=== PATIENT | male | born 1960 | race Caucasian/White ===

== ENCOUNTER 2020-04-14 12:39 | Emergency (ER) | payer OTHER ==
[~2020-04-14] VITALS: Ht 182.8 cm; Wt 100.0 kg
--- NOTE | 2020-04-14 12:56 | ED Psychosocial ---
General Chief Complaint: Substance Abuse Stated Complaint: MEDICAL CLEARANCE Source: patient History of Present Illness Date Seen by Provider: Apr 14, 2020 Time Seen by Provider: 12:55 Initial Comments Patient presents under police custody for medical clearance for incarceration. Patient without any complaint, denies any recent illness. He denies chest pain, shortness of air, fever or chills. He denies abdominal pain, nausea vomiting. Does have a history of hypertension and does take his blood pressure medicine daily. Allergies and Home Medications Allergies Coded Allergies: No Known Drug Allergies (Unverified , 04/14/20) Patient Home Medication List Home Medication List Reviewed: Yes Review of Systems Constitutional: no symptoms reported Respiratory: no symptoms reported Cardiovascular: no symptoms reported Gastrointestinal: no symptoms reported Musculoskeletal: no symptoms reported Past Zswrhvd-Fhbikm-Yvlwpb Hx Past Med/Social Hx: Reviewed Nursing Past Med/Soc Hx Patient Social History Alcohol Use: Occasionally Uses Recreational Drug Use: No Smoking Status: Current Someday Smoker Type Used: Cigarettes 2nd Hand Smoke Exposure: No Recent Foreign Travel: No Contact w/Someone Who Travel: No Recent Hopitalizations: No Seasonal Allergies Seasonal Allergies: No Past Medical History Surgeries: Yes (BTK Amputation) Amputation Respiratory: No Cardiac: Yes High Cholesterol, Hypertension Neurological: No Gastrointestinal: No Musculoskeletal: Yes (Left BTK amputation) Amputee Endocrine: No HEENT: No Cancer: No Psychosocial: No Integumentary: No Blood Disorders: No Physical Exam Capillary Refill : Height, Weight, BMI Height: '" Weight: lbs. oz. kg; BMI Method: General Appearance: WD/WN, no apparent distress Respiratory: chest non-tender, lungs clear Cardiovascular: regular rate, rhythm, no edema Gastrointestinal: non tender, soft Neurologic/Psychiatric: no motor/sensory deficits, alert, normal mood/affect, oriented x 3 Departure Impression Primary Impression: Medical clearance for incarceration Disposition: 21 DIS/[address]/LAW ENFORCE Condition: Stable Departure-Patient Inst. Referrals: NO,LOCAL PHYSICIAN (PCP/Family) Primary Care Physician Patient Instructions: ALCOHOL AND SUBSTANCE ABUSE Add. Discharge Instructions: Medically cleared for incarceration All discharge instructions reviewed with patient and/or family. Voiced understanding. JUANITO JARA DO Apr 14, 2020 12:56
--- OUTSIDE RECORDS SUMMARY | 2020-04-14 15:14 | XMS REPORT ---
Author Vinod Antunez [facility] eClinicalWorks Address Unknown Phone Unavailable Care Team Providers Care Tangible Personal Property Appraiser Name Role Phone JOSE SANCHEZ CP Unavailable Allergies, Adverse Reactions, Alerts Substance Reaction Event Type N.K.D.A. Info Not Available Non Drug Allergy Problems Problem Type Condition Code Onset Dates Condition Statu s Problem COPD [Chronic obstructive pulmonary disease] 496 Active Problem Diverticulosis of colon without diverticulitis 562.10 Active Problem Allergy, unspecified 995.3 Active Problem Hyperlipidemia 272.4 Active Problem Impaired fasting glucose 790.21 Act lindsey Problem AMPUT BELOW KNEE, UNILAT 897.0 Act lindsey Problem Erectile Dysfunction 607.84 Active Problem GERD [Gastroesophageal reflux disease] 530.81 Active Problem Depressive disorder NEC 311 Acti ve Problem Hypercholesterolemia 272.0 Active Assessment Erectile Dysfunction 607.84 Active Assessment Impaired fasting glucose 790.21 Act lindsey Assessment Hypercholesterolemia 272.0 Active Assessment GERD [Gastroesophageal reflux disease] 530.81 Active Assessment Exam. Annual Physical Adult V70.0 Active Medications Medication Code System Code Instructions Start Date End Date Status Dosage amlodipine NDC 78517 5 mg orally once a day February 26, 2014 1 tab(s) pantoprazole NDC 28434 40 mg orally once a day 1 tab(s) Prosthetic supplies NDC 0 prosthetic repair topical as needed Jun 12, 2012 -- Cortisporin Otic NDC 82822 1%-0.35%-93990 units/mL in each affected ear 4 times a day 2 gtt aspirin NDC 27679 325 mg orally once a day Aug 30, 2004 1 tab(s) CRESTOR NDC 49840 10 mg orally once a day (at bedtime) March 13 14 1 tab(s) Viagra NDC 94007 100 mg orally once a day as needed Nov 05, 2008 1 tab(s) Spiriva NDC 79374 18 mcg inhaled as needed February 24, 2011 1 ea Prosthetic Left Leg NDC 0 below the knee - use daily May 14 014 repair or replace Bactroban NDC 720 2% ointment intranasally 2 times a d ay as needed January 27, 2003 1 pritesh Procedures Procedure Coding System Code Date Prev Med, estab pt, 40-64 yr CPT-4 04804 Dec Vital Signs Date/Time: December 26, 2014 Temperature 97.7 F Weight 230.4 lbs Height 73(shoes) in Pain Scale 5 R hand 0-10 Blood Pressure Diastolic 80LC mm Hg Blood Pressure Systolic 130 mm Hg Results No Known Results Summary Purpose eClinicalWorks Submission
--- OUTSIDE RECORDS SUMMARY | 2020-04-14 15:14 | XMS REPORT ---
Author Author Vinod Levine Organization [facility], [place] Address [address] [place] [id number] Care Team Providers Care Rug Layer Name Role Phone Julianna Jared Unavailable PROBLEMS Type Condition ICD9-CM Code [id number] Code Onset Dates Condition S tatus SNOMED Code Problem Unspecified gastritis and ga stroduodenitis without mention of hemorrhage 535.50 Active 490671428 Problem Stricture and stenosis of esophagus 530.3 Active 15427417 Problem GERD 530.81 Active 482171624 Problem Family history of colon cancer V16.0 Active 351471555 Problem Hemorrhoids, internal w/o complication 455.0 Active 81511216 Problem Esophagitis, unspecified 530.10 Activ e 53148457 Problem Dysphagia, unspecified 787.20 Active 14288138 Problem Diverticulosis of colon (without mention of hemorrhage) 56 2.10 Active 805434738 ALLERGIES No Information ENCOUNTERS Encounter Location Date Diagnosis [facility] [address] [id number] Feb, Family history of colon canc er requiring screening colonoscopy Z80.0 [facility], [address] [address] Dec, Family history of colon cancer requiring screening colonoscopy Z80.0 [facility], [address] [address] Oct, GERD 530.81 [facility], [address] [address] Feb, GERD 530.81 and Family history of colon cancer V16.0 [facility], [address] [address] Oct, [facility], [address] [address] January, Esophagitis, unspecified 530.10 and Family history of colon cancer V16.0 [facility], [place] [address] [place] [address] January, [facility], [place] [address] [place] [address] Jul, [facility], [place] [address] [place] [address] Feb, [facility], [place] [address] [place] [address] Feb, IMMUNIZATIONS No Known Immunizations SOCIAL HISTORY Never Assessed REASON FOR VISIT Fm Hx Colon Polyps PLAN OF CARE Activity Details Pending Test Surgical to [facility] Pathology VITAL SIGNS MEDICATIONS Medication Instructions Dosage Frequency Start Date End Date Duration S tatus Aspirin 325 MG Orally Once a day 1 tablet 24h Active Viagra dose 1 tablet as needed A ctive Crestor 10 MG Orally Once a day 1 tablet 24h Active Amlodipine Besylate 5 MG Orally Once a day 1 tablet 24h Active Pantoprazole Sodium 40 MG Orally Once a day 1 tablet 24h January, 4 90 days Active RESULTS No Results PROCEDURES No Known procedures INSTRUCTIONS MEDICATIONS ADMINISTERED No Known Medications MEDICAL (GENERAL) HISTORY Type Description Date Medical History diverticulosis Medical History constipation Medical History sessile serrated adenomatous polyp Medical History esophagitis Medical History gastritis Medical History dysphagia Medical History mild esophageal narrowing Surgical History colonoscopy 02/25/2013 Surgical History EGD 12/28/2009
--- OUTSIDE RECORDS SUMMARY | 2020-04-14 15:14 | XMS REPORT | Continuity of Care Document ---
Author Organization Unknown Address Unknown Phone Unavailable Allergies Active Description Code Type Severity Reaction Onset Reported/Identified Relationship to Patient Clinical Status Yes NO KNOWN DRUG ALLERGIES 447609 Drug Allergy N/A N/A Yes NO NAME AVAILABLE [id number] DRUG N/A N/A Medications Medication Packaging Start Date St op Date Route Dosage Sig pantoprazole (PROTONIX) 40 m g delayed release tablet -- TAKE 1 BY MOUTH DAILY BEFORE BREAKFAST tablet 03/22 pantoprazole (PROTONIX) 40 m g delayed release tablet -- Take 40 mg by mouth once a day with breakfast tablet 05/30/2017 Oral DAILY WITH BREAKFAST DAILY WITH BREAKFAST atorvastatin (LIPITOR) 40 mg tablet -- TAKE 1 BY MOUTH DAILY AT BEDTIME tablet 06/09/2017 atorvastatin (LIPITOR) 40 mg tablet -- TAKE 1 BY MOUTH DAILY AT BEDTIME tablet 08/09/2017 atorvastatin (LIPITOR) 40 mg tablet -- TAKE 1 BY MOUTH DAILY AT BEDTIME tablet 10/11/2017 pantoprazole (PROTONIX) 40 m g delayed release tablet -- Take 40 mg by mouth once a day with breakfast tablet 12/19/2017 Oral DAILY WITH BREAKFAST DAILY WITH BREAKFAST pantoprazole (PROTONIX) 40 m g delayed release tablet -- Take 40 mg by mouth once a day with breakfast tablet 01/03/2018 Oral DAILY WITH BREAKFAST DAILY WITH BREAKFAST atorvastatin (LIPITOR) 40 mg tablet -- TAKE 1 BY MOUTH DAILY AT BEDTIME tablet 01/03/2018 amLODIPine (NORVASC) 5 mg ta blet -- Take 5 mg by mouth once a day tablet 01/03/2018 Oral DAILY DAILY varenicline (CHANTIX) 0.5 mg (11)- 1 mg (42) dose pack (starter) -- Take according to package instructions. Kit 01/03/2018 varenicline (CHANTIX) 1 mg t ablet -- Take 1 mg by mouth two times a day tablet 01/03/2018 Or al 2 TIMES A DAY 2 TIMES A DAY cetirizine (ZYRTEC) 10 mg ta blet -- Take 10 mg by mouth two times a day, as needed for Allergies (Rash) tablet 11/27/2018 Oral 2 TIMES A DAY NE EDED 2 TIMES A DAY NEEDED predniSONE (DELTASONE) 10 mg tablet -- 5,5,4,4,3,3,2,2,1,1 tablet 11/27/2018 varenicline (CHANTIX) 0.5 mg (11)- 1 mg (42) dose pack (starter) -- Take according to package instructions. Kit 11/27/2018 varenicline (CHANTIX) 1 mg t ablet -- Take 1 mg by mouth two times a day tablet 12/19/2018 Or al 2 TIMES A DAY 2 TIMES A DAY Problems Date Dx Coded Attending Type Code Diagnosis Diagnosed By 12/20/2016 TONY DUVALL E78. 4 Other hyperlipidemia 12/20/2016 TONY DUVALL WORKING I10 Essential (primary) hypertension 12/20/2016 TONY DUVALL WORKING Z12. 5 Encounter for screening for malignant neoplasm of prostate 02/06/2017 KARMA GONSALEZ V R97. 20 Elevated prostate specific antigen (PSA) KARMA GONSALEZ 02/24/2017 KARMA GONSALEZ WORKING N40.0 Benign prostatic hyperplasia without lower urinary tra ct symptoms 07/18/2017 KARMA GONSALEZ ADMITTING R97.20 Elevated prostate specific antigen (PSA) 12/28/2017 TONY DUVALL WORKING Z00. 00 Encounter for general adult medical examination without abnormal findings 01/03/2018 WORKING E78.2 Mixed hyperlipidemia 01/03/2018 WORKING I10 E ssential (primary) hypertension 01/03/2018 WORKING K21.0 Gastro- esophageal reflux disease with esophagitis 01/03/2018 WORKING Z00.00 Encounter for general adult medical examination without abnormal findings 01/03/2018 WORKING Z72.0 Tobacco use 01/03/2018 WORKING Z86.010 Personal history of colonic polyps 11/27/2018 WORKING I10 E ssential (primary) hypertension 11/27/2018 WORKING L23.89 Allergic contact dermatitis due to other agents 11/27/2018 WORKING Z72.0 Tobacco use 01/14/2020 TONY DUVALL 83 Annual Exam 02/03/2020 RAMYA BARROS [id number] Urinary Frequency Procedures There is no data. Results Test Result Range CBC WITH DIFF - 12/19/14 07:17 WBC 6.4 10*3/uL 4.3-10.8 RBC 5.44 10*6/uL 4.70-6.10 HGB 16.8 g/dL 14.0-18.0 HCT 48.7 % 42-52 MCV 90 fL 81-99 MCH 31 pg 26-34 MCHC 35 g/dL 31-37 PLATELET COUNT 162 10*3/uL 150-400 RDWCV 13.4 % 11.5-14.5 DIFF TYPE AUTOMATED DIFF NEUTROPHIL % 63 % 36-66 LYMPHOCYTE % 20 % 24-44 MONOCYTE % 13 % 1-10 EOSINOPHIL % 3 % 0-6 BASOPHIL % 1 % 0-2 ABS. NEUTROPHILS 4.0 10*3/uL 1.55-7.13 ABS. LYMPHOCYTES 1.3 10*3/uL 1.0-4.8 ABS. MONOCYTES 0.8 10*3/uL 0.4-1.08 ABS. EOSINOPHILS 0.2 10*3/uL 0.0-0.65 ABS. BASOPHILS 0.1 10*3/uL 0.0-0.11 ABSOLUTE NUCLEATED RBC 0.00 10*3/uL PERCENT NUCLEATED RBC 0 COMPREHENSIVE METABOLIC PANEL - 12/19/14 07:17 POTASSIUM 4.5 mmol/L 3.5-5.1 CALCIUM 9.8 mg/dL 8.6-10.6 GLUCOSE 115 mg/dL 70-115 BUN 18 mg/dL 8-22 CREATININE 1.0 mg/dL 0.7-1.3 SODIUM 136 mmol/L 136-145 CHLORIDE 106 mmol/L 98-110 CO2 20 mmol/L 22-29 GFR ESTIMATED NOT AFR/AM >60 GFR ESTIMATED IF AFR/AM >60 ALT-SGPT 26 U/L 0-55 AST-SGOT 31 U/L 5-34 TOTAL PROTEIN,SERUM 7.2 g/dL 6-8.3 ALBUMIN 4.2 g/dL 3.6-5.3 ALKALINE PHOSPHATASE 93 U/L 40-150 TOTAL BILIRUBIN 1.2 mg/dL 0.2-1.2 ANION GAP 10 5-15 GLOBULIN, CALCULATED 3.0 g/dL A/G RATIO 1.4 ratio 1-1.8 LIPID PANEL W/REFLEX LDL - 12/19/14 07:1 7 TRIGLYCERIDES 152 mg/dL 20-170 CHOLESTEROL 147 mg/dL 140-200 HDL 40 mg/dL 35-60 LDL 77 mg/dL 60-130 PROSTATE SPECIFIC ANTIGEN, TOTAL - MEDIC AL - 12/19/14 07:17 TOTAL PROSTATIC SPECIFIC AG 0.6 ng/mL 0- 4 TSH - 12/19/14 07:17 TSH 2.00 m[iU]/mL 0.35-4.9 URINALYSIS REFLEX TO CULTURE - 12/19/14 07:17 COLOR YELLOW APPEARANCE CLEAR CLEAR SPECIFIC GRAVITY 1.020 1.005-1.030 PH, URINE 5.5 5.0-9.0 PROTEIN TRACE mg/dL NEGATIVE GLUC NEGATIVE mg/dL NEGATIVE KETONES NEGATIVE mg/dL NEGATIVE BILIRUBIN NEGATIVE NEGATIVE BLOOD NEGATIVE NEGATIVE NITRITE NEGATIVE NEGATIVE UROBILINOGEN NORMAL mg/dL NORMAL LEUKOCYTE ESTERASE NEGATIVE NEGATIVE WBC'S 3 [HPF] 0-4 MUCUS OCCASIONAL [LPF] SQUAMOUS EPITHELIAL CELLS 1 [LPF] 0-1 CBC WITH DIFF - 12/17/15 07:13 WBC 6.8 10*3/uL 4.3-10.8 RBC 5.33 10*6/uL 4.70-6.10 HGB 16.4 g/dL 14.0-18.0 HCT 48.6 % 42-52 MCV 91 fL 81-99 MCH 31 pg 26-34 MCHC 34 g/dL 31-37 PLATELET COUNT 180 10*3/uL 150-400 RDWCV 13.3 % 11.5-14.5 DIFF TYPE AUTOMATED DIFF NEUTROPHIL % 65 % 36-66 LYMPHOCYTE % 21 % 24-44 MONOCYTE % 11 % 1-10 EOSINOPHIL % 2 % 0-6 BASOPHIL % 1 % 0-2 ABS. NEUTROPHILS 4.4 10*3/uL 1.55-7.13 ABS. LYMPHOCYTES 1.4 10*3/uL 1.0-4.8 ABS. MONOCYTES 0.7 10*3/uL 0.4-1.08 ABS. EOSINOPHILS 0.2 10*3/uL 0.0-0.65 ABS. BASOPHILS 0.1 10*3/uL 0.0-0.11 ABSOLUTE NUCLEATED RBC 0.00 10*3/uL COMPREHENSIVE METABOLIC PANEL - 12/17/15 07:13 POTASSIUM 4.4 mmol/L 3.5-5.1 CALCIUM 9.1 mg/dL 8.6-10.6 GLUCOSE 112 mg/dL 70-115 BUN 18 mg/dL 8-22 CREATININE 0.9 mg/dL 0.7-1.3 SODIUM 139 mmol/L 136-145 CHLORIDE 105 mmol/L 98-110 CO2 26 mmol/L 22-29 GFR ESTIMATED NOT AFR/AM >60 GFR ESTIMATED IF AFR/AM >60 ALT-SGPT 25 U/L 0-55 AST-SGOT 29 U/L 5-34 TOTAL PROTEIN,SERUM 6.6 g/dL 6-8.3 ALBUMIN 4.0 g/dL 3.6-5.3 ALKALINE PHOSPHATASE 89 U/L 40-150 TOTAL BILIRUBIN 0.9 mg/dL 0.2-1.2 ANION GAP 8 5-15 GLOBULIN, CALCULATED 2.6 g/dL A/G RATIO 1.5 ratio 1-1.8 LIPID PANEL W/REFLEX LDL - 12/17/15 07:1 3 TRIGLYCERIDES 214 mg/dL 20-170 CHOLESTEROL 158 mg/dL 140-200 HDL 39 mg/dL 35-60 LDL 76 mg/dL 60-130 PROSTATE SPECIFIC ANTIGEN, TOTAL - MEDIC AL - 12/17/15 07:13 TOTAL PROSTATIC SPECIFIC AG 0.9 ng/mL 0- 4 TSH - 12/17/15 07:13 TSH 2.24 m[iU]/mL 0.35-4.9 URINALYSIS REFLEX TO CULTURE - 12/17/15 07:13 SPECIMEN MIDSTREAM URINE COLOR YELLOW APPEARANCE CLEAR CLEAR SPECIFIC GRAVITY 1.018 1.005-1.030 PH, URINE 6.0 5.0-9.0 PROTEIN TRACE mg/dL NEGATIVE GLUC NEGATIVE mg/dL NEGATIVE KETONES NEGATIVE mg/dL NEGATIVE BILIRUBIN NEGATIVE NEGATIVE BLOOD NEGATIVE NEGATIVE NITRITE NEGATIVE NEGATIVE UROBILINOGEN NORMAL mg/dL NORMAL LEUKOCYTE ESTERASE TRACE NEGATIVE WBC'S 4 [HPF] 0-4 RBC'S <1 [HPF] 0-1 MUCUS FEW [LPF] NEGATIVE SQUAMOUS EPITHELIAL CELLS 1 [HPF] 0-1 CBC WITH DIFF - 12/20/16 07:03 WBC 6.02 10*3/uL 4.30-10.80 RBC 5.25 10*6/uL 4.70-6.10 HGB 15.6 g/dL 14.0-18.0 HCT 47.7 % 42.0-52.0 MCV 91 fL 81-99 MCH 30 pg 26.0-34.0 MCHC 32.7 g/dL 31.0-37.0 PLATELET COUNT 201 10*3/uL 150-400 RDWCV 12.3 % 11.5-14.5 DIFF TYPE AUTOMATED DIFF NEUTROPHIL % 62.2 % 36.0-66.0 LYMPHOCYTE % 23.9 % 24.0-44.0 MONOCYTE % 8.3 % 1.0-10.0 EOSINOPHIL % 4.2 % 0.0-6.0 BASOPHIL % 1.2 % 0.0-2.0 ABS. NEUTROPHILS 3.75 10*3/uL 1.55-7.13 ABS. LYMPHOCYTES 1.44 10*3/uL 1.00-4.80 ABS. MONOCYTES 0.50 10*3/uL 0.40-1.08 ABS. EOSINOPHILS 0.25 10*3/uL 0.00-0.65 ABS. BASOPHILS 0.07 10*3/uL 0.00-0.11 ABSOLUTE NUCLEATED RBC 0.00 10*3/uL 0.00 PERCENT NUCLEATED RBC 0.0 % 0.0 MPV 13.4 fL 9.4-12.4 RDW STANDARD DEVIATION 41.1 fL 35.1-43 .9 GRANULOCYTE, IMMATURE, ABSOLUTE 0.0 10*3/uL 0.0-0.1 GRANULOCYTES, IMMATURE, PERCENT 0.2 % 0.0-0.5 COMPREHENSIVE METABOLIC PANEL - 12/20/16 07:03 POTASSIUM 4.4 mmol/L 3.5-5.1 CALCIUM 9.1 mg/dL 8.5-10.0 GLUCOSE 94 mg/dL 70-115 BUN 17 mg/dL 7-18 CREATININE 0.89 mg/dL 0.55-1.30 SODIUM 142 mmol/L 136-145 CHLORIDE 107 mmol/L 98-107 CO2 27 mmol/L 21-32 GFR ESTIMATED NOT AFR/AM >60 GFR ESTIMATED IF AFR/AM >60 ALT-SGPT 24 U/L 16-61 AST-SGOT 19 U/L 15-37 TOTAL PROTEIN,SERUM 6.8 g/dL 6.0-8.3 ALBUMIN 3.4 g/dL 3.4-5.0 ALKALINE PHOSPHATASE 90 U/L 45-117 TOTAL BILIRUBIN 0.6 mg/dL 0.2-1.0 ANION GAP 8 5-15 GLOBULIN, CALCULATED 3.4 g/dL A/G RATIO 1.0 ratio 1-1.8 LIPID PANEL WITH DIRECT MEASURED LDL - 0 12/20/16 07:03 TRIGLYCERIDES 78 mg/dL 20-170 CHOLESTEROL 128 mg/dL <201 HDL 44 mg/dL 40-60 LOW DENSITY LIPOPROTEIN, DIRECT 71 mg/dL <100 PROSTATE SPECIFIC ANTIGEN, TOTAL - MEDIC AL - 12/20/16 07:03 TOTAL PROSTATIC SPECIFIC AG 1.9 ng/mL <4 .1 URINALYSIS REFLEX TO CULTURE - 12/20/16 07:04 SPECIMEN MIDSTREAM URINE COLOR YELLOW APPEARANCE CLEAR CLEAR SPECIFIC GRAVITY 1.014 1.005-1.030 PH, URINE 6.0 5.0-9.0 PROTEIN NEGATIVE mg/dL NEGATIVE GLUC NEGATIVE mg/dL NEGATIVE KETONES NEGATIVE mg/dL NEGATIVE BILIRUBIN NEGATIVE NEGATIVE BLOOD NEGATIVE NEGATIVE NITRITE NEGATIVE NEGATIVE UROBILINOGEN NORMAL mg/dL NORMAL LEUKOCYTE ESTERASE NEGATIVE NEGATIVE WBC'S <1 [HPF] 0-4 RBC'S <1 [HPF] 0-1 SQUAMOUS EPITHELIAL CELLS <1 [HPF] 0-1 CBC WO DIFF - 02/24/17 07:25 WBC 6.32 10*3/uL 4.30-10.80 RBC 5.63 10*6/uL 4.70-6.10 HGB 16.8 g/dL 14.0-18.0 HCT 48.1 % 42.0-52.0 MCV 85 fL 81-99 MCH 30 pg 26.0-34.0 MCHC 34.9 g/dL 31.0-37.0 PLATELET COUNT 161 10*3/uL 150-400 RDWCV 14.5 % 11.5-14.5 ABSOLUTE NUCLEATED RBC 0.00 10*3/uL 0.00 PERCENT NUCLEATED RBC 0.0 % 0.0 MPV 12.7 fL 9.4-12.4 RDW STANDARD DEVIATION 45.1 fL 35.1-43 .9 BASIC METABOLIC PANEL - 02/24/17 07:25 POTASSIUM 4.4 mmol/L 3.5-5.1 CALCIUM 8.6 mg/dL 8.5-10.0 GLUCOSE 114 mg/dL 70-115 BUN 19 mg/dL 7-18 CREATININE 1.00 mg/dL 0.55-1.30 SODIUM 143 mmol/L 136-145 CHLORIDE 111 mmol/L 98-107 CO2 25 mmol/L 21-32 GFR ESTIMATED NOT AFR/AM >60 GFR ESTIMATED IF AFR/AM >60 ANION GAP 7 5-15 PSA - 07/18/17 10:38 TOTAL PROSTATIC SPECIFIC AG 0.96 ng/mL < 4.00 CBC WITH DIFF - 12/28/17 07:32 WBC 9.97 10*3/uL 4.30-10.80 RBC 5.68 10*6/uL 4.70-6.10 HGB 17.6 g/dL 14.0-18.0 HCT 52.2 % 42.0-52.0 MCV 92 fL 81-99 MCH 31 pg 26.0-34.0 MCHC 33.7 g/dL 31.0-37.0 PLATELET COUNT 235 10*3/uL 150-400 RDWCV 12.8 % 11.5-14.5 DIFF TYPE AUTOMATED DIFF NEUTROPHIL % 77.9 % 36.0-66.0 LYMPHOCYTE % 13.1 % 24.0-44.0 MONOCYTE % 6.9 % 1.0-10.0 EOSINOPHIL % 0.6 % 0.0-6.0 BASOPHIL % 1.1 % 0.0-2.0 ABS. NEUTROPHILS 7.76 10*3/uL 1.55-7.13 ABS. LYMPHOCYTES 1.31 10*3/uL 1.00-4.80 ABS. MONOCYTES 0.69 10*3/uL 0.40-1.08 ABS. EOSINOPHILS 0.06 10*3/uL 0.00-0.65 ABS. BASOPHILS 0.11 10*3/uL 0.00-0.11 ABSOLUTE NUCLEATED RBC 0.00 10*3/uL 0.00 PERCENT NUCLEATED RBC 0.0 % 0.0 MPV 12.1 fL 9.4-12.4 RDW STANDARD DEVIATION 43.1 fL 35.1-43 .9 GRANULOCYTE, IMMATURE, ABSOLUTE 0.04 10*3/uL 0.00-0.10 GRANULOCYTES, IMMATURE, PERCENT 0.4 % 0.0-0.5 COMPREHENSIVE METABOLIC PANEL - 12/28/17 07:32 POTASSIUM 4.4 mmol/L 3.5-5.1 CALCIUM 9.1 mg/dL 8.5-10.0 GLUCOSE 102 mg/dL 70-115 BUN 19 mg/dL 7-18 CREATININE 0.98 mg/dL 0.55-1.30 SODIUM 140 mmol/L 136-145 CHLORIDE 103 mmol/L 98-107 CO2 30 mmol/L 21-32 GFR ESTIMATED NOT AFR/AM >60 GFR ESTIMATED IF AFR/AM >60 ALT-SGPT 26 U/L 16-61 AST-SGOT 21 U/L 15-37 TOTAL PROTEIN,SERUM 7.2 g/dL 6.0-8.3 ALBUMIN 3.6 g/dL 3.4-5.0 ALKALINE PHOSPHATASE 118 U/L 45-117 TOTAL BILIRUBIN 1.0 mg/dL 0.2-1.0 ANION GAP 7 5-15 GLOBULIN, CALCULATED 3.6 g/dL A/G RATIO 1.0 ratio 1-1.8 LIPID PANEL WITH DIRECT MEASURED LDL - 0 12/28/17 07:32 TRIGLYCERIDES 133 mg/dL 20-170 CHOLESTEROL 124 mg/dL <201 HDL 54 mg/dL 40-60 LOW DENSITY LIPOPROTEIN, DIRECT 55 mg/dL <100 URINALYSIS AUTOMATED W MICROSCOPY - 02/09 07:33 SPECIMEN MIDSTREAM URINE COLOR YELLOW APPEARANCE CLEAR CLEAR SPECIFIC GRAVITY 1.017 1.005-1.030 PH, URINE 7.5 5.0-9.0 PROTEIN TRACE mg/dL NEGATIVE GLUC NEGATIVE mg/dL NEGATIVE KETONES NEGATIVE mg/dL NEGATIVE BILIRUBIN NEGATIVE NEGATIVE BLOOD NEGATIVE NEGATIVE NITRITE NEGATIVE NEGATIVE UROBILINOGEN NORMAL mg/dL NORMAL LEUKOCYTE ESTERASE NEGATIVE NEGATIVE WBC'S 1 [HPF] 0-4 RBC'S <1 [HPF] 0-1 MUCUS RARE [LPF] NEGATIVE SQUAMOUS EPITHELIAL CELLS 1 [HPF] 0-1 PSA SCREEN - 01/03/19 07:38 PSA - PROSTATE SPECIFIC ANTIGEN 0.74 ng/mL <4.00 COMPREHENSIVE METABOLIC PANEL - 01/03/19 07:38 ALKALINE PHOSPHATASE 88 U/L 45-117 TOTAL PROTEIN 6.6 g/dL 6.0-8.3 AST (SGOT) 20 U/L 15-37 ALT (SGPT) 23 U/L 16-61 ALBUMIN 3.4 g/dL 3.4-5.0 BILIRUBIN TOTAL 0.8 mg/dL 0.2-1.0 CALCIUM 8.9 mg/dL 8.5-10.0 CO2 26 mmol/L 21-32 CHLORIDE 107 mmol/L 98-107 CREATININE 0.92 mg/dL 0.55-1.30 ESTIMATED GLOMERULAR FILTRATION RATE 89 mL/min/1.7 3m2 >=60 GLUCOSE 91 mg/dL 70-115 BUN 14 mg/dL 8-26 POTASSIUM 4.1 mmol/L 3.5-5.1 SODIUM 141 mmol/L 136-145 ANION GAP 8 mmol/L 5-15 GLOBULIN 3.2 g/dL NRG A/G RATIO 1.1 NA 1.0-1.8 LIPID PANEL - 01/03/19 07:38 HDL CHOLESTEROL 43 mg/dL 40-60 TRIGLYCERIDES 89 mg/dL 20-170 CHOLESTEROL 106 mg/dL <201 LDL CHOLESTEROL 46 mg/dL <100 CBC WITH AUTO DIFFERENTIAL - 01/03/19 07 :38 HEMATOCRIT 47.7 % 37.0-47.0 HEMOGLOBIN 16.1 g/dL 14.0-18.0 PLATELET COUNT 187 K/uL 150-400 WBC 6.18 K/uL 4.30-10.80 RBC 5.19 M/uL 4.70-6.10 MCV 92 fL 81-99 MCH 31.0 pg 26.0-34.0 MCHC 33.8 g/dL 31.0-37.0 RDW-SD 42.0 fL 35.1-43.9 RDW-CV 12.3 % 11.5-14.5 MPV 13.4 fL 9.4-12.4 NUCLEATED RBC [facility] 0.0 /100 WBC 0.0 NEUTROPHILS 60.6 % 36.0-66.0 LYMPHOCYTES 22.5 % 24.0-44.0 MONOCYTES 12.9 % 1.0-10.0 EOSINOPHILS 2.1 % 0.0-6.0 BASOPHILS 1.6 % 0.0-2.0 IMMATURE GRANULOCYTES 0.3 % 0.0-0.5 NEUTROPHILS # 3.74 K/uL 1.55-7.13 LYMPHOCYTES # 1.39 K/uL 1.00-4.80 MONOCYTES # 0.80 K/uL 0.40-1.08 EOSINOPHILS # 0.13 K/uL 0.00-0.65 BASOPHILS # 0.10 K/uL 0.00-0.11 IMMATURE GRANULOCYTES ABS 0.02 K/uL 0.0 0-0.10 NRBC ABS 0.00 K/uL NRG SYSM[facility] MANUAL DIFF FLAG NRG SYS[facility] SCAN SLIDE FLAG NRG COMPLETE Yes NRG PSA SCREEN - 10/28/19 08:21 PSA - PROSTATE SPECIFIC ANTIGEN 0.94 ng/mL <4.00 URINE CULTURE - 10/28/19 09:29 Microbiology CBC WITH AUTO DIFFERENTIAL - 01/14/20 08 :59 HEMATOCRIT 49.4 % 42.0-52.0 HEMOGLOBIN 17.0 g/dL 14.0-18.0 PLATELET COUNT 124 K/uL 150-400 WBC 7.85 K/uL 4.30-10.80 RBC 5.33 M/uL 4.70-6.10 MCV 93 fL 81-99 MCH 31.9 pg 26.0-34.0 MCHC 34.4 g/dL 31.0-37.0 RDW-SD 49.1 fL 35.1-43.9 RDW-CV 14.4 % 11.5-14.5 MPV 11.1 fL 9.4-12.4 NUCLEATED RBC [facility] 0.0 /100 WBC 0.0 NEUTROPHILS 77.2 % 36.0-66.0 LYMPHOCYTES 11.2 % 24.0-44.0 MONOCYTES 10.3 % 1.0-10.0 EOSINOPHILS 0.3 % 0.0-6.0 BASOPHILS 0.6 % 0.0-2.0 IMMATURE GRANULOCYTES 0.4 % 0.0-0.5 NEUTROPHILS # 6.06 K/uL 1.55-7.13 LYMPHOCYTES # 0.88 K/uL 1.00-4.80 MONOCYTES # 0.81 K/uL 0.40-1.08 EOSINOPHILS # 0.02 K/uL 0.00-0.65 BASOPHILS # 0.05 K/uL 0.00-0.11 IMMATURE GRANULOCYTES ABS 0.03 K/uL 0.0 0-0.10 NRBC ABS 0.00 K/uL 0.00 COMPREHENSIVE METABOLIC PANEL - 01/14/20 08:59 ALKALINE PHOSPHATASE 96 U/L 45-117 TOTAL PROTEIN 7.9 g/dL 6.0-8.3 AST (SGOT) 51 U/L 15-37 ALT (SGPT) 45 U/L 16-61 ALBUMIN 3.8 g/dL 3.4-5.0 BILIRUBIN TOTAL 1.4 mg/dL 0.2-1.0 CALCIUM 9.6 mg/dL 8.5-10.0 CO2 27 mmol/L 21-32 CHLORIDE 102 mmol/L 98-107 CREATININE 0.87 mg/dL 0.55-1.30 ESTIMATED GLOMERULAR FILTRATION RATE 95 mL/min/1.7 3m2 >=60 GLUCOSE 131 mg/dL 70-115 BUN 22 mg/dL 8-26 POTASSIUM 4.3 mmol/L 3.5-5.1 SODIUM 139 mmol/L 136-145 ANION GAP 10 mmol/L 5-15 GLOBULIN 4.1 g/dL NRG A/G RATIO 0.9 NA 1.0-1.8 LIPID PANEL - 01/14/20 08:59 HDL CHOLESTEROL 108 mg/dL 40-60 TRIGLYCERIDES 75 mg/dL 20-170 CHOLESTEROL 250 mg/dL <201 LDL CHOLESTEROL 119 mg/dL <100 Encounters ACCT No. Visit Date/Time Discharge Status Pt. Type Provider Facility Loc./Unit Complaint [id number] 02/03/2020 09:31:26 2019 10:15:28 DIS [facility] [address] [id number] 01/14/2020 07:44:45 2019 01:07:49 DIS Outpatient [facility] at [address] [id number] 01/14/2020 07:02:49 2019 07:41:28 DIS Outpatient TONY DUVALL [address] [id number] 10/28/2019 08:10:18 2019 01:10:21 DIS Outpatient [facility] at [address] [id number] 10/28/2019 07:39:34 2019 08:09:08 DIS Outpatient TONY DUVALL [address] [id number] 01/08/2019 07:09:45 2018 07:47:07 DIS Outpatient TONY DUVALL [address] [id number] 01/03/2019 07:30:55 2018 01:38:48 DIS Outpatient [facility] at [address] [id number] 01/21/2020 16:36:35 Document Registration [id number] 12/25/2019 09:23:17 Document Registration [id number] 12/24/2019 10:47:34 Document Registration [id number] 10/29/2019 11:13:57 Document Registration [id number] 10/24/2019 14:11:06 Document Registration [id number] 08/14/2019 08:03:34 Document Registration [id number] 12/19/2018 00:00:00 12/19/2018 23: 59:59 CLS Outpatient [facility] [id number] 11/27/2018 08:56:17 11/27/2018 23: 59:59 CLS Outpatient [facility] [id number] 11/27/2018 00:00:00 11/27/2018 23: 59:59 [id number] 10/03/2018 00:00:00 10/03/2018 23: 59:59 CLS Outpatient [facility] [id number] 04/19/2018 00:00:00 04/19/2018 23: 59:59 CLS Outpatient [facility] [id number] 03/07/2018 00:00:00 03/07/2018 23: 59:59 CLS Outpatient [facility] [id number] 01/15/2018 00:00:00 01/15/2018 23: 59:59 CLS Outpatient [facility] [id number] 01/03/2018 07:31:54 01/03/2018 23: 59:59 CLS Outpatient [facility] [id number] 12/19/2017 00:00:00 12/19/2017 23: 59:59 CLS Outpatient [facility] [id number] 12/13/2017 00:00:00 12/13/2017 23: 59:59 [facility] [id number] 11/03/2017 00:00:00 11/03/2017 23: 59:59 CLS Outpatient [facility] [id number] 10/11/2017 00:00:00 10/11/2017 23: 59:59 CLS Outpatient [facility] [id number] 08/09/2017 00:00:00 08/09/2017 23: 59:59 CLS Outpatient [facility] [id number] 01/15/2018 11:41:36 Document Registration [id number] 06/09/2017 07:56:10 Document Registration [id number] 06/09/2017 07:47:37 Document Registration [id number] 05/30/2017 09:29:59 Document Registration [id number] 03/22/2017 23:29:31 Document Registration [id number] 03/20/2017 10:10:42 Document Registration [id number] 03/14/2017 10:56:04 Document Registration [id number] 03/13/2017 11:41:15 Document Registration [id number] 03/13/2017 07:03:26 Document Registration [id number] 12/28/2016 07:02:19 Document Registration [id number] 12/12/2016 11:00:59 Document Registration [id number] 09/22/2016 11:16:52 Document Registration [id number] 12/28/2017 07:30:00 12/28/2017 23: 59:00 [facility] [id number] 07/18/2017 14:22:51 07/18/2017 23: 59:00 DIS Outpatient [facility] FLBOPS [id number] 02/24/2017 06:43:00 02/24/2017 11: 28:00 DIS Inpatient [facility] FPHII [id number] 12/20/2016 07:01:25 12/20/2016 23: 59:00 [id number]17[facility]2015 07:11:43 12/17/2015 23: 59:59 [id number]/19/2014 07:15:00 12/19/2014 23: 59:00 [id number] 03/05/2014 07:06:10 03/05/2014 23: 59:00 DIS [facility] [id number] 06/09/2017 00:00:00 06/09/2017 23: 59:59 CLS Outpatient [facility] [id number] 05/30/2017 00:00:00 05/30/2017 23: 59:59 CLS Outpatient [facility] [id number] 05/15/2017 00:00:00 05/15/2017 23: 59:59 CLS Outpatient [facility] [id number] 05/03/2017 00:00:00 05/03/2017 23: 59:59 CLS Outpatient [facility] [id number] 03/22/2017 00:00:00 03/22/2017 23: 59:59 CLS Outpatient [facility] [id number] 03/13/2017 07:03:26 03/13/2017 23: 59:59 CLS Outpatient [facility] [id number] 02/08/2017 00:00:00 02/08/2017 23: 59:59 CLS Outpatient [facility] [id number] 12/29/2016 00:00:00 12/29/2016 23: 59:59 CLS Outpatient [facility] [id number] 12/28/2016 07:02:19 12/28/2016 23: 59:59 [facility] [id number] 12/20/2016 00:00:00 12/20/2016 23: 59:59 CLS Outpatient [facility] [id number] 12/12/2016 11:00:59 12/12/2016 23: 59:59 CLS Outpatient [facility] [id number] 09/22/2016 11:16:52 09/22/2016 23: 59:59 CLS Outpatient [facility] [id number] 09/20/2016 00:00:00 09/20/2016 23: 59:59 CLS Outpatient [facility] [id number] 06/10/2016 00:00:00 06/10/2016 23: 59:59 [facility] [id number] 06/07/2016 00:00:00 06/07/2016 23: 59:59 CLS Outpatient [facility] [id number] 02/06/2017 07:46:29 23:59:00 DIS Outpatient [facility]ARMA [facility]ONSALEZ [facility]
--- OUTSIDE RECORDS SUMMARY | 2020-04-14 15:14 | XMS REPORT ---
Author Author Vinod RAYO Organization [employer] Address Unknown Phone Unavailable Care Team Providers Care [employer] Operator Name Role Phone SHEELA RAYO Unavailable Allergies No Known Allergies Problems Problem Type Condition ICD-9 Code Onset Dates Condition Statu s Problem [...] 311 Acti ve Problem Hypercholesterolemia 272.0 Active Medications No Known Medications Results No Known Results Summary Purpose [employer] Submission
--- OUTSIDE RECORDS SUMMARY | 2020-04-14 15:14 | XMS REPORT ---
Author Vinod Antunez [facility] [employer] Address Unknown Phone Unavailable Care Team Providers Care Teacher Emotionally Impaired Name Role Phone JOSE SANCHEZ CP Unavailable Allergies, Adverse Reactions, Alerts Substance Reaction Event Type N.K.D.A. 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 Act lindsey Problem Erectile Dysfunction 607.84 Active Problem GERD [Gastroesophageal reflux disease] 530.81 Active Problem Depressive disorder NEC 311 Acti ve Problem Hypercholesterolemia 272.0 Active Medications Medication Code System Code Instructions Start Date End Date Status Dosage Prosthetic supplies NDC 0 prosthetic repair topical as needed Jun 12, 2012 -- CRESTOR NDC 20231 10 mg orally once a day (at bedtime) March 13 14 1 tab(s) pantoprazole NDC 64022 40 mg orally once a day 1 tab(s) Viagra NDC 44950 100 mg orally once a day as needed Nov 05, 2008 1 tab(s) azithromycin NDC 00900 250 mg orally once a day Jun 26, 2015 2 tablets on the first day, then 1 tablet daily for 4 days Prosthetic Left Leg NDC 0 below the knee - use daily May 14 014 repair or replace aspirin NDC 69995 325 mg orally once a day Aug 30, 2004 1 tab(s) amlodipine NDC 84184 5 mg orally once a day February 26, 2014 1 tab(s) Procedures Procedure Coding System Code Date Office Visit, estab pt, Level 3 CPT-4 57275 Jun 26, 2015 Vital Signs Date/Time: Jun 26, 2015 Blood Pressure Systolic 160 mm Hg Temperature 98.1 F Weight 238.4 lbs Pain Scale 0 0-10 Blood Pressure Diastolic 110LC mm Hg Results No Known Results Summary Purpose [employer] Submission
--- OUTSIDE RECORDS SUMMARY | 2020-04-14 15:14 | XMS REPORT ---
Author Vinod Escobar [facility] eClinicalWorks Address Unknown Phone Unavailable Care Team Providers Care [employer] Technician Name Role Phone CARLYN LAIRD CP Unavailable Allergies, Adverse Reactions, Alerts Substance Reaction Event Type N.K.D.A. 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 Act lindsey Problem Erectile Dysfunction 607.84 Active Problem GERD [Gastroesophageal reflux disease] 530.81 Active Problem Depressive disorder NEC 311 Acti ve Problem Hypercholesterolemia 272.0 Active Medications Medication Code System Code Instructions Start Date End Date Status Dosage Prosthetic Left Leg NDC 0 below the knee - use daily May 14 014 repair or replace pantoprazole NDC 20971 40 mg orally once a day 1 tab(s) CRESTOR NDC 51987 10 mg orally once a day (at bedtime) March 13 14 1 tab(s) Zithromax Z-Marv NDC 3343 250 mg orally once a day January 30, 2015 2 tablets on the first day, then 1 tablet daily for 4 days Bactroban NDC 720 2% ointment intranasally 2 times a d ay as needed January 27, 2003 1 pritesh aspirin NDC 36985 325 mg orally once a day Aug 30, 2004 1 tab(s) amlodipine NDC 32017 5 mg orally once a day February 26, 2014 1 tab(s) Viagra NDC 89903 100 mg orally once a day as needed Nov 05, 2008 1 tab(s) Prosthetic supplies NDC 0 prosthetic repair topical as needed Jun 12, 2012 -- Procedures Procedure Coding System Code Date Office Visit, estab pt, Level 3 CPT-4 64443 January 30, 2015 Vital Signs Date/Time: January 30, 2015 BMI 30.72 Index Weight 228.1 lbs Height 6 ft 0.25 in in Pain Scale 0 0-10 Blood Pressure Diastolic 86 mm Hg Blood Pressure Systolic 132 mm Hg Temperature 98.8 F Results No Known Results Summary Purpose eClinicalWorks Submission
== END 2020-04-14 13:02 ==
LOC: ER FS 12:42
DX: Z02.89 Encounter for other administrative examinations (principal); E78.00 Pure hypercholesterolemia, unspecified; I10 Essential (primary) hypertension; F17.210 Nicotine dependence, cigarettes, uncomplicated; Z89.512 Acquired absence of left leg below knee
CPT/HCPCS: 99283